=== PATIENT | female | born 1955 | race Caucasian/White ===

== ENCOUNTER → 2019-10-10 10:37 | Outpatient (CLI) | payer OTHER, SELFPAY ==
[2019-10-10 11:53] LABS: Appearance Urine UA CLEAR; Bilirubin Urine UA NEGATIVE (NEGATIVE); Color Urine UA YELLOW; Glucose Urine UA NEGATIVE (Negative); Ketones Urine UA NEGATIVE (NEGATIVE); Leukocyte Esterase Urine UA 2+ (NEGATIVE); Nitrite Urine UA NEGATIVE (Negative); Occult Blood Urine UA TRACE-LYSED (Negative); Protein Urine UA NEGATIVE (Negative); Specific Gravity Urine UA 1.015 (1.000-1.035); Urobilinogen Urine UA 0.2 E.U./dL (0.2)
[2019-10-10 12:28] LABS: Bacteria Urine Many (>30); RBC Urine 0-1/HPF (0-5/HPF); WBC Urine 5-10/HPF (0-5/HPF)
[2019-10-10 12:29] LABS: Culture Indicated Urine Specimen Cultured
== END ==
PROVIDERS: Family Provider Physician Assistant; PCP Naturopath; Referring Provider Naturopath; Visit Provider Naturopath
DX: N30.90 Cystitis, unspecified without hematuria (principal)
CPT/HCPCS: 81001; 87077; 87086; 87186

== ENCOUNTER → 2024-05-26 10:25 | Outpatient (CLI) | payer MEDICARE, SELFPAY ==
--- NOTE | 2024-05-26 10:33 | DI.RAD.S_ITS ---
PROCEDURE: XR CERVICAL SPINE 4V OR 5V INDICATIONS: NECK PAIN TECHNIQUE: Five views of the cervical spine acquired. COMPARISON: None. FINDINGS: Cervical spine curvature and alignment: Normal. Bones: There are no osseous abnormalities. Disc spaces: Solid anterior C6-7 fusion provided by interbody graft , anterior plate and screws appreciated. There is moderate C5-6 and mild C7-T1 degenerative disc disease. There is mild bilateral C3-4 through C7-T1 degenerate facet disease also seen. Intervertebral foramen: Oblique views show moderate bilateral C5-6 IV foraminal narrowing due to degenerative spurs. Soft tissues: No soft tissue swelling, calcification or mass. IMPRESSION: Solid anterior C6-7 fusion. Degeneration. Dictated by: German Carrasco M.D. on 05/29/2024 at 10:11 Approved by: German Carrasco M.D. on 05/29/2024 at 10:13
== END ==
PROVIDERS: Family Provider Physician Assistant; PCP Nurse Practitioner Family; Referring Provider Chiropractor; Visit Provider Chiropractor
DX: M47.812 Spondylosis without myelopathy or radiculopathy, cervical region (principal); M50.322 Other cervical disc degeneration at C5-C6 level; Z98.1 Arthrodesis status
CPT/HCPCS: 72050

== ENCOUNTER → 2024-08-07 14:41 | Outpatient (CLI) | payer MEDICARE, OTHER, SELFPAY ==
--- NOTE | 2024-08-07 14:45 | DI.RAD.S_ITS ---
PROCEDURE: XR KNEE STANDING BI INDICATIONS: KNEE PAIN TECHNIQUE: Single AP view of both knees was acquired. COMPARISON: None. FINDINGS: Bones: There are no osseous abnormalities. Joints: Left total knee prosthesis is anatomically aligned without loosening or infection. Severe right medial tibial femoral degeneration noted. Right medial tibial femoral degeneration noted Soft tissues: Normal IMPRESSION: Severe right medial tibial femoral degeneration Dictated by: German Carrasco M.D. on 08/08/2024 at 9:24 Approved by: German Carrasco M.D. on 08/08/2024 at 9:25
--- NOTE | 2024-08-07 14:45 | DI.RAD.S_ITS ---
PROCEDURE: XR LUMBAR SPINE 2-3V INDICATIONS: BACK PAIN TECHNIQUE: 3 views of the lumbar spine were acquired. COMPARISON: None. FINDINGS: Lumbar spine curvature and alignment: Moderate idiopathic dextroscoliosis of the lower thoracic and lumbar spine appreciated. Grade 1 L5-S1 spondylolisthesis noted with possible spondylitic defects. Bones: There are no other osseous abnormalities. Disc spaces: Moderate T10-11 through L1-2 mild L2-3 L3-4 and moderate L5-S1 degenerative disc disease noted. Moderate L4-5 and L5-S1 degenerative facet disease appreciated. Soft tissues: No soft tissue swelling, calcification or mass. IMPRESSION: Grade 1 L5-S1 spondylolisthesis with possible spondylitic defects. If more specific evaluation is required , suggest CT or MRI. Multilevel degeneration Moderate dextroscoliosis Dictated by: German Carrasco M.D. on 08/08/2024 at 9:22 Approved by: German Carrasco M.D. on 08/08/2024 at 9:24
== END ==
PROVIDERS: Family Provider Physician Assistant; PCP Nurse Practitioner Family; Referring Provider Chiropractor; Visit Provider Chiropractor
DX: M43.16 Spondylolisthesis, lumbar region (principal); M41.9 Scoliosis, unspecified; M25.569 Pain in unspecified knee; M54.50 Low back pain, unspecified; Z96.652 Presence of left artificial knee joint
CPT/HCPCS: 72100; 73565